=== PATIENT | female | born 1935 | race Caucasian/White ===

== ENCOUNTER → 2016-09-20 | Outpatient (CLI) | payer OTHER | LOC: BRMIMAGING 10:43 | DX: Z12.31 Encounter for screening mammogram for malignant neoplasm of breast (principal) | CPT/HCPCS: G0202 ==

== ENCOUNTER → 2017-09-20 | Outpatient (CLI) | payer OTHER | LOC: BRMIMAGING 10:16 | DX: Z12.31 Encounter for screening mammogram for malignant neoplasm of breast (principal) ==

== ENCOUNTER → 2018-09-21 | Outpatient (CLI) | payer OTHER | LOC: BRMIMAGING 10:25 | DX: Z12.31 Encounter for screening mammogram for malignant neoplasm of breast (principal) ==